=== PATIENT | male | born 1975 | race Caucasian/White ===

== ENCOUNTER → 2017-11-09 12:17 | Outpatient (CLI) | payer OTHER, SELFPAY ==
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
== END ==
PROVIDERS: Family Provider Family Medicine; PCP Family Medicine; Visit Provider Family Medicine
DX: M54.9 Dorsalgia, unspecified (principal)
CPT/HCPCS: 72110

== ENCOUNTER 2017-12-08 17:30 | Outpatient (RCR) | payer OTHER, SELFPAY ==
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
--- NOTE | 2017-12-08 17:30 | DT_ITS ---
This patient was seen during an EMR downtime December 05, 2017 - December 12, 2017. This patient may have a combination of paper and electronic documentation or all paper documentation. All documentation is viewable within the e-chart portion of [facility] for each patient visit.
--- NOTE | 2017-12-13 15:28 | HP.PTDCSUM_ITS ---
HP - PT D/C Summary It has been my pleasure to treat MAYA ROSE under orders from Piotr Keller, for the diagnosis of LLD, back pain, R peroneal nerve injury for a total of 4 visit( s). Discharge Date: 12/13/17 Please see the following information for a summary of their discharge status. - Subjective Subjective: 3/10 pain R lateral hip. R foot has consistent numbness and weakness. Intermittent pain R distal and lateral LB. - Pain LBP Pain Intensity (Out of 10): 3 - Objective Objective/Function: R big toe ext 3/5. R DF 3+. R eversion 3+, still very weak in all these movements without improvement. LB aROM WFL except flexion 50 % limited and painful R hip. Not improving or progressing, can't check goals as system down at time of visit. - Goals Goal 1:: Full LB ROM and 4+/5 strength R foot and ankle without pain. Goal Progress: Not Progressing Goal 2:: Pt sleep without waking at night Goal Progress: Not Progressing Goal 3:: Pt feel 90% back to normal Goal Progress: Not Progressing Goal 4:: Feel comfortable taking hike again. Goal Progress: Not Progressing - Plan Plan: D/C recommend further diagnostics, MRI/NCT and specialist [facility] he plans to do in [place] where he will be for the next two months, he has already started this process. - D/C Information Discharge Comments: Patient not improving and has already started next medical step. If there are questions or concerns regarding this patient's physical therapy, please feel free to call me at [phone]. Thank you for the referral of this patient. Sincerely, Piotr Patrick, DPT, OC
== END 2017-12-08 19:00 | disposition home or self-care (01) ==
LOC: PT 17:30
PROVIDERS: Family Provider Family Medicine; PCP Family Medicine; Visit Provider Family Medicine
DX: M21.70 Unequal limb length (acquired), unspecified site (principal); M54.9 Dorsalgia, unspecified; G57.31 Lesion of lateral popliteal nerve, right lower limb
CPT/HCPCS: 97110; 97163; 97530

== ENCOUNTER → 2020-05-07 16:26 | Outpatient (CLI) | payer OTHER, SELFPAY | PROVIDERS: PCP Family Medicine; Visit Provider Family Medicine | DX: Z20.828 Contact with and (suspected) exposure to other viral communicable diseases (principal) | CPT/HCPCS: 87635; U0003 ==

== ENCOUNTER 2021-04-14 08:00 | Outpatient (RCR) | payer BC, SELFPAY ==
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
== END 2021-04-14 19:00 | disposition home or self-care (01) ==
LOC: PT 08:00
PROVIDERS: PCP Family Medicine; Referring Provider Family Medicine; Visit Provider Family Medicine
DX: M54.9 Dorsalgia, unspecified (principal); M21.70 Unequal limb length (acquired), unspecified site
CPT/HCPCS: 97110; 97162; 97760

== ENCOUNTER → 2021-06-18 | Outpatient (CLI) | payer BC, SELFPAY | END | disposition home or self-care (01) | PROVIDERS: PCP Family Medicine; Visit Provider Physician Assistant | DX: J02.9 Acute pharyngitis, unspecified (principal) | CPT/HCPCS: 87635; U0005; U0003 ==